=== PATIENT | female | born 1990 | race Caucasian/White ===

== ENCOUNTER 2022-09-30 12:42 | Outpatient (CLI) | payer SELFPAY ==
--- NOTE | 2022-09-30 13:00 | CRLHL7_ITS ---
For Patients: As a result of the Century Cures Act, medical imaging exams and procedure reports are released immediately into your electronic medical record. You may view this report before your referring provider. If you have questions, please contact your health care provider. INDICATION: First trimester scan, establish dates. TECHNIQUE: Real-time cooper-scale imaging of the pelvis was performed. FINDINGS: Sonographic imaging demonstrates a single living intrauterine gestation. The embryo demonstrates a regular cardiac rate measuring 168 beats per minute. The embryo`s crown-rump length measurement of 2.5 cm corresponds to a gestational age of 9 weeks 1 day with a sonographic due date of 05/04/2023 . There is a normal-appearing yolk sac. Small subchorionic hemorrhage measuring 1. 1 x 0.7 x 1. 9 centimeters. IMPRESSION: Early intrauterine gestation with gestational age of 9 weeks 1 day with KEEGAN of 05/04/2023. Small subchorionic hemorrhage measuring 1.1 x 0.7 x 1.9 cm. Dictated by Kathryn Valderrama MD @ 10/03/2022 7:16:27 AM (Electronically Signed)
== END 2022-09-30 12:43 | disposition home or self-care (01) ==
PROVIDERS: Visit Provider Physician Assistant
DX: Z34.91 Encounter for supervision of normal pregnancy, unspecified, first trimester (principal); O20.9 Hemorrhage in early pregnancy, unspecified; Z3A.09 9 weeks gestation of pregnancy
CPT/HCPCS: 76801

== ENCOUNTER 2022-09-30 13:48 | Outpatient (CLI) | payer SELFPAY ==
[2022-09-30 19:21] LABS: Chlamydia DNA Amplified* NOT DETECTED (No Detected); GC DNA Amplified* NOT DETECTED (No Detected)
== END 2022-09-30 13:49 | disposition home or self-care (01) ==
PROVIDERS: Visit Provider Registered Nurse
DX: Z34.91 Encounter for supervision of normal pregnancy, unspecified, first trimester (principal); Z3A.09 9 weeks gestation of pregnancy; O20.9 Hemorrhage in early pregnancy, unspecified
CPT/HCPCS: 86592; 86703; 86762; 86787; 86803; 86850; 86900; 86901; 87086; 87340; 87491; 87591

== ENCOUNTER 2023-02-12 11:20 | Outpatient (CLI) | payer OTHER, SELFPAY | END 2023-02-12 11:21 | disposition home or self-care (01) | LOC: NFLDREF 11:21 | PROVIDERS: Visit Provider Obstetrics & Gynecology | DX: O26.899 Other specified pregnancy related conditions, unspecified trimester (principal); Z67.91 Unspecified blood type, Rh negative | CPT/HCPCS: 86592; 86850; J2791 ==

== ENCOUNTER 2023-04-06 09:01 | Outpatient (CLI) | payer OTHER, SELFPAY ==
--- NOTE | 2023-04-06 09:15 | US_ITS ---
Patient: LESA FARAH Facility:?[facility] Patient ID:?[id number] Site Patient ID:?[id number]. Site :?[id number] Study:?US-OB Pelvis growth check-04/06/2023 10:42:59 AM Ordering Physician:ROBERTO Final Report: INDICATION: Third trimester scan, evaluate growth. COMPARISON: 09/30/2022 TECHNIQUE: Real time cooper scale imaging of the fetus was performed. FINDINGS: Sonographic imaging demonstrates a single living intrauterine gestation. Fetus demonstrates a regular cardiac rate of 145 beats per minute. Fetus has a vertex position. The placenta lies anterior. Amniotic fluid volume appears normal and there is a single deepest vertical pocket: 7.2 cm. The estimated weight is 3429gm which lies at the 92nd %. BPD 95th percentile. HC 93rd percentile. AC greater than 97th percentile. FL 17th percentile. The HC/AC ratio measures 0.98 range (0.89-1.06). IMPRESSION: Sonographic gestational age 38 weeks 1 day and sonographic due date of 04/19/2023. Sonographic age 12 days ahead of the clinical age. Estimated weight 92nd percentile. Abdominal circumference greater than 97th percentile. Dictated by Cash Butler MD @ 04/06/2023 11:05:53 AM Signed by:?Cash Butler MD @04/06/2023 11:05:53 AM (Electronic Signature)
== END 2023-04-06 09:02 | disposition home or self-care (01) ==
LOC: US 09:01
PROVIDERS: Visit Provider Obstetrics & Gynecology
DX: Z34.93 Encounter for supervision of normal pregnancy, unspecified, third trimester (principal); Z3A.38 38 weeks gestation of pregnancy
CPT/HCPCS: 76815; 76816; 76819

== ENCOUNTER 2023-04-06 11:00 | Outpatient (CLI) | payer OTHER, SELFPAY | END 2023-04-06 11:01 | disposition home or self-care (01) | LOC: NFLDREF 04-22 14:54 | PROVIDERS: Visit Provider Obstetrics & Gynecology | DX: Z34.93 Encounter for supervision of normal pregnancy, unspecified, third trimester (principal); Z36.85 Encounter for antenatal screening for Streptococcus B; Z3A.38 38 weeks gestation of pregnancy | CPT/HCPCS: 87081; 87653 ==

== ENCOUNTER 2023-05-03 05:19 | Inpatient (IN) | payer OTHER, SELFPAY ==
[2023-05-03] VITALS (36 sets, daily range): BP systolic 91–117; BP diastolic 54–76; PULSE 62–89; RESP 16–18; TEMP 36.3–36.7; O2SAT 95–100; BMI 40.5
[2023-05-03 06:01] LABS: Basophils Absolute Auto 0.04 K/uL (0.00-0.30); Basophils Percent Auto 0.4 % (0.0-3.0); Eosinophils Absolute Auto 0.14 K/uL (0.00-0.50); Eosinophils Percent Auto 1.4 % (0.0-7.0); Hemoglobin* 12.1 gm/dL (12.0-16.0); Immature Granulocytes Abs Auto 0.03 K/uL (0.00-0.30); Immature Granulocytes Pct Auto 0.3 %; Lymphocytes Absolute Auto 2.61 K/uL (0.90-2.90); Lymphocytes Percent Auto 26.1 % (20-44); Mean Corpuscular HGB Conc 34 gm/dL (32-36); Mean Corpuscular Hemoglobin 29 pg (26-34); Mean Corpuscular Volume 87 fL (80-100); Monocytes Percent Auto 5.9 % (0.0-11.0); Neutrophils Absolute Auto 6.59 K/uL (1.7-7.0); Neutrophils Percent Auto 65.9 % (42.0-72.0); Platelet Count* 164 K/uL (140-440); RDW Coefficient of Variation % 13.8 % (11.5-15.5); Red Blood Count 4.13 m/uL (4.00-5.20)
[2023-05-03 06:12] LABS: Slide Review Reflex No
[2023-05-03] MEDS: LACTATED RINGERS 1000 ML 1,000 ML 500 ML IV (06:19)
--- NOTE | 2023-05-03 07:22 | P.LDBA_ITS ---
Subjective History of Present Illness Time Seen by Provider: 07:05 Narrative: Patient is being admitted to Labor and Delivery for repeat section. She is a 32 year old at 40 2/7 weeks gestation. Her full history and physical was dictated by Dr. Schulte on 04/14/23. Please see this for details. Specific Issues/Plans G 2 P 1001 H&P done by Dr. Schulte on 04/14/23 1. BMI 35.1 * Hemoglobin A1c 5.2 * Recommend daily baby ASA d/t BMI and family h/o pre E 2. History of delivery due to arrest of descent. * Desires TOLAC. * Growth ultrasound at 36 weeks: (04/06/2023) EFW 3429 g or 7 lb 9 oz (92%), BPD 95%, HC 93%, AC >97%, FL 17%, SDP 7.2 cm. * If no spontaneous labor by due date, then probably will choose repeat section over IOL. 3. ZE 1.1 x 0.7 x 1.9 cm. 4. 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 Facial abnormalities, ocular problems, hearing loss, and joint and skeletal problems) in father of the baby's family, his father and sister. FOB sister with stickler also had heart defects. * Offer genetic counseling: Seen 12/09/22. Recommended echo and possibly screening. * MFM Consult and Level 2 US: 12/09/22, normal. Recommended echo, not yet scheduled. 5. Rh negative - s/p Rhogam COVID: Not vaccinated. Recommended. Flu: Declined Rhogam: 02/12 RSV: Declined OB - Problem Based A/P Delivery/Labor/Induction Plan Plan: Section (Informed consent obtained.) OB Result Labs Blood Type: 0 (-) negative Rubella: immune RPR/VDLR: nonreactive GBS Status: negative HBsAG: negative OB Exam Physical Exam Vital signs: Temp Pulse Resp BP 97.9 F 89 17 117/75 05/03/23 05:57 05/03/23 05:57 05/03/23 05:57 05/03/23 05:57 Detailed Labor and Delivery Exam Patient Gravid: Yes Fetus (Single) Amniotic Membrane Status: intact Heart Rate Baseline: 140 Monitor Accelerations: Present Monitor Decelerations: None Jail Variability: Moderate (6-25)
--- NOTE | 2023-05-03 07:24 | PM.OBPRCCS ---
OB Delivery Proc Additional Procedures Tubal Ligation at the time of : No Procedure Date of procedure: 05/03/23 Pre-op diagnosis: 40 2/7 weeks gestation, h/o prior Post-op diagnosis: same Procedure Done: Global Will [facility] bill your pro fee for this procedure?: Yes Blood Loss Measurement Type: QBL (444 mL) Bakri Used: No Surgeon: Mariaelena Schulte MD Anesthesia Type: Spinal (and TAP block) Findings: Moderate amount of scar tissue involving fasica and rectus muslces, bladder and lower uterine segment. Live-born male infant, cephalic presentation, Apgars 9 and 9 at 1 and 5 minutes respectively, weight 3080 g or 8 lb 2 oz. normal-appearing fallopian tubes and ovaries bilaterally. Procedure Name: Repeat low transverse section. Procedure Description: After obtaining informed consent, the patient was taken to the operating room where spinal anesthesia was obtained and found to be adequate. She was prepared and draped in the normal sterile fashion in the dorsal supine position with a leftward tilt. A Pfannenstiel skin incision was made with a scalpel along the line of the patient's previous Pfannenstiel scar. This incision was carried down to the underlying layer of fascia with the Bovie. The fascia was incised in the midline and the incision extended laterally. The superior and inferior aspects of the fascial incision were grasped with Mirlande clamps, elevated and the underlying rectus muscles dissected off sharply and with electrocautery. This dissection took an increased amount of time given the dense adhesions. The rectus muscles were then in the midline. The adhesions between the bladder and lower uterine segment were taken down sharply with Metzenbaum scissors. The Brayden O retractor was then placed into the incision. The lower uterine segment was then incised in a transverse fashion with the scalpel. Upon entry into the uterus, clear amniotic fluid was noted. The uterine incision was extended laterally with blunt finger fractionation. The infant's head was delivered atraumatically, followed by the remainder of the 's body. The nose and mouth were suctioned with the bulb suction. The cord was doubly clamped and cut, and the was handed off the field for evaluation. The placenta was delivered spontaneously with umbilical cord traction and fundal massage. The uterus was cleared of all clots and debris. The uterine incision was reapproximated in a running locking fashion with a 0 chromic suture. A 2nd layer of the same suture was used to imbricate in horizontal fashion. One additional figure of X suture of 3-0 chromic was needed for hemostasis near the left lateral aspect of the hysterotomy closure. The gutters were irrigated and suctioned. All instruments and retractors were removed. The anterior peritoneum was reapproximated in a running fashion with a 3-0 Vicryl suture. The subfascial tissues were carefully inspected and hemostasis assured. The fascia was reapproximated in a running fashion with a looped 0 Maxon suture. The subcutaneous tissues were copiously irrigated. Hemostasis was assured. The subcutaneous fat layer was reapproximated with interrupted sutures of 3-0 plain gut. The skin was closed in a subcuticular fashion with 4-0 Monocryl. Surgical glue and dressing were applied. The patient tolerated the procedure well. Sponge, lap, needle, and instrument counts were reported as correct x2. The patient was taken to the recovery room, awake, and in stable condition. She did receive 2 grams of IV Ancef preoperatively. Complications: None. Pathology: none sent Surgery Debrief Performed: Yes Surgery Debrief Comment: Debrief confirmed procedure performed, estimated blood loss, weight and Apgars, placenta not to be sent to pathology. Condition: stable Disposition: floor
[2023-05-03] MEDS: CEFAZOLIN 2 GM INJ IVP (07:35)
[2023-05-03] MEDS: LACTATED RINGERS 1000 ML 1,000 ML 100 ML IV (07:52)
--- NOTE | 2023-05-03 07:54 | W.ANESCHARGE ---
Anesthesia Charges Start Date/Time Anesthesia Start Date: 05/03/23 Anesthesia Start Time: 07:20 Stop Date/Time Anesthesia Stop Date: 05/03/23 Anesthesia Stop Time: 09:02
[2023-05-03] MEDS: KETOROLAC 15 MG/ML inj IVP (08:40)
--- NOTE | 2023-05-03 09:10 | W.PM.NB ---
Nerve Block Nerve Block Time Seen by Provider: 08:52 Date Seen: 05/03/23 Type of block requested by surgeon for post-operative analgesia: TAP Side: bilateral Time out performed: Yes Verification of patient name: Yes Verification of date of : Yes Site marking: site marked Name of person performing procedure: Jose M Continuous monitoring Was continuous monitoring of O2 sat, B/P, court recording monitor, recorded every 15 minutes?: Yes Procedure Checklist: sterile prep, needles and gloves Ultrasound guided. Images saved: Yes Medications given in 5ml increments after negative aspiration: Marcaine %: 0.25 mL: 30 Needle gauge: 20 and Exparel mL: 10 Patient tolerated procedure well: Yes Additional comments: Needle noted between internal oblique and transversus abdominus. Local spread visualized Block Charges Block Charge (with Pro Fee): TAP Bilateral Use of Ultrasound Machine for Block: Yes- US Guidance/pain block
--- NOTE | 2023-05-03 09:11 | W.ANESCHARGE ---
Anesthesia Charges Start Date/Time Anesthesia Start Date: 05/03/23 Anesthesia Start Time: 07:20 Stop Date/Time Anesthesia Stop Date: 05/03/23 Anesthesia Stop Time: 09:02
[2023-05-03] MEDS: KETOROLAC 30 MG/ML inj IVP ×2 (14:36→20:48)
[2023-05-03] MEDS: ACETAMINOPHEN 500 MG TABLET 1000 MG PO ×2 (17:36→23:39)
[2023-05-03] MEDS: DOCUSATE SODIUM 100 MG CAPSULE PO (23:40)
[2023-05-04] VITALS (12 sets, daily range): BP systolic 103–114; BP diastolic 69–77; PULSE 79–105; RESP 16; TEMP 36.5–36.8; O2SAT 97–98
[2023-05-04] MEDS: KETOROLAC 30 MG/ML inj IVP ×3 (03:18→15:52)
[2023-05-04 06:45] LABS: Hemoglobin* 11.2 gm/dL (12.0-16.0)
[2023-05-04] MEDS: ACETAMINOPHEN 500 MG TABLET 1000 MG PO ×3 (07:18→22:16)
--- NOTE | 2023-05-04 07:32 | P.OBPN_ITS ---
OB - PN:Subj Subjective Date Seen: 05/04/23 Patient comments OB post-: no complaints, pain well controlled, tolerating diet and flatus present [place] status: and doing well [place] feeding status: exclusively Narrative: The patient feels well.? The pain is well controlled with current medications.? She has no new complaints.? Urinary output is adequate and she is voiding w ithout difficulty.? Has a good appetite, is tolerating a general diet, is passing flatus, and has not had a bowel movement.? Has scant amount of rubra lochia.? She is ambulating well.?She is and feels that it is going good at this time. OB - PN: Obj Exam Physical Exam: Vital signs: Temp Pulse Resp BP Pulse Ox O2 Del Method 98.2 F 105 H 16 105/74 97 Room Air 05/04/23 03:22 05/04/23 03:22 05/04/23 06:49 05/04/23 03:22 05/03/23 16:18 05/03/23 23:45 Narrative: GENERAL APPEARANCE:? normal affect, alert, no distress? MOOD:? appropriate? CHEST:? clear to auscultation and percussion? HEART:? regular rate and rhythm? ABDOMEN:? soft, non-tender the uterine fundus is U/2 and is appropriate for the stage of recovery.?Dressing is clean, dry and intact. EXTREMITIES:? normal and no edema? Urinary Catheter Management: Urethral: Cath placed during this visit: yes, but has since been removed by the nurse Reason for continuing: surgical procedure Insertion date: 05/03/23 Insertion time: 07:40 Removal date: 05/03/23 Removal time: 17:20 OB - PN: Obj Data Labs Labs: Laboratory Results - last 24 hr 05/04/23 06:31 Hgb 11.2 L OB - PN: A/P Delivery Assessment and Plan (1) care following delivery: Status: Acute (2) Lactating mother: Status: Acute Plan day: 1 Plan: routine care Comments: Anticipate discharge tomorrow or the following dy per patient preference.
[2023-05-04] MEDS: DOCUSATE SODIUM 100 MG CAPSULE PO (15:56)
[2023-05-04 17:29] LABS: Rapid Plasma Reagin (RPR) Non Reactive (Non Reactive)
[2023-05-04] MEDS: IBUPROFEN 600 MG TABLET PO (20:12)
[2023-05-05] MEDS: IBUPROFEN 600 MG TABLET PO ×4 (02:11→20:51)
[2023-05-05 02:12] VITALS: BP 106/72; PULSE 97; RESP 16; TEMP 36.4; O2SAT 97
[2023-05-05] MEDS: ACETAMINOPHEN 500 MG TABLET 1000 MG PO ×3 (05:13→18:57)
[2023-05-05] MEDS: DOCUSATE SODIUM 100 MG CAPSULE PO (08:00)
[2023-05-05 09:15] VITALS: BP 114/78; PULSE 106; RESP 16; TEMP 36.7; O2SAT 98
--- NOTE | 2023-05-05 10:47 | P.OBPN_ITS ---
OB - PN:Subj Subjective Time Seen by Provider: 10:47 Date Seen: 05/05/23 Narrative: Betsy is a 32-year-old seen on postop day 2 from repeat delivery. was complicated by prior , subchorionic hemorrhage, Rh- negative status, obesity and Stickler syndrome. Betsy is feeling well, no acute concerns. She notes her pain is well controlled, rated 2/10. Lochia is minimal. Appetite at baseline, no nausea/vomiting. She voids spontaneously without issue, passing gas and bowel movement x1. Ambulates without dizziness or lightheadedness. She is experiencing some upper abdominal discomfort and itching, note she had a abdominal rash following her for . Betsy is baby Pato without difficulty. OB - PN: Obj Exam Physical Exam: Vital signs: Temp Pulse Resp BP Pulse Ox O2 Del Method 98.0 F 106 H 16 114/78 98 Room Air 05/05/23 09:15 05/05/23 09:15 05/05/23 09:15 05/05/23 09:15 05/05/23 09:15 05/05/23 09:15 Narrative: General: Alert and oriented, in no acute distress Psych: Appropriate mood and affect Abdomen: Soft, nondistended. Mildly tender to palpation in the low abdomen. Fundus at 1 below umbilicus. Skin: Erythematous patches across supraumbilical mid abdomen and 1 patch in the right lower quadrant, appearance consistent with likely contact dermatitis. Urinary Catheter Management: Urethral: Cath placed during this visit: yes, but has since been removed by the nurse Reason for continuing: surgical procedure Insertion date: 05/03/23 Insertion time: 07:40 Removal date: 05/03/23 Removal time: 17:20 OB - PN: Obj Data Labs Labs: Laboratory Results - last 24 hr 05/03/23 05/04/23 07:45 06:31 RPR Screen Non Reactive Screen Negative OB - PN: A/P Delivery Assessment and Plan (1) care following delivery: Status: Acute Assessment and Plan: Ms. Fitzgerald is seen on POD2 from repeat C/S. She is feeling well, unremarkable post-op course to present. She is meeting all appropriate postoperative milestones. Vital signs reviewed and are noted to be within normal limits. Post-op Hgb of 11.2. Continue to work on pain control, p.o. intake and amb ulation. She is a candidate for early dismissal this evening, but is planning to stay overnight. All questions answered. (2) Lactating mother: Status: Acute (3) Contact dermatitis: Status: Acute Assessment and Plan: Betsy has erythematous patches on her abdomen consistent with contact dermatitis. This may be secondary to surgical prep or drapes. Recommend cetirizine PRN and hydrocortisone cream for itching. Plan Plan: routine care
[2023-05-05 16:44] VITALS: BP 107/73; PULSE 89; RESP 16; TEMP 36.7; O2SAT 97
[2023-05-06 01:11] VITALS: BP 110/72; PULSE 86; RESP 16; TEMP 36.8; O2SAT 95
[2023-05-06] MEDS: ACETAMINOPHEN 500 MG TABLET 1000 MG PO ×2 (01:36→07:51)
[2023-05-06] MEDS: IBUPROFEN 600 MG TABLET PO ×2 (04:09→11:25)
--- NOTE | 2023-05-06 07:52 | P.DS_ITS ---
DS: Providers Provider Date Seen: 05/06/23 Date of admission: 05/03/23 05:19 Primary care physician: Not a Local Provider Admitting Clinician: Mariaelena Schulte MD Attending Physician on discharge: Vidya Irwin CNM Date of Discharge: 05/06/23 DS: Diagnosis Discharge Diagnosis (1) care following delivery: Status: Acute (2) Lactating mother: Status: Acute (3) Contact dermatitis: Status: Acute Exam Narrative: Exam Narrative: GENERAL APPEARANCE:? normal affect, alert, no distress MOOD:? appropriate CHEST:? clear to auscultation HEART:? regular rate and rhythm ABDOMEN:? soft, non-tender the uterine fundus is firm u/1 Umbilicus, Midline and is appropriate for the stage of recovery. PERINEUM:?intact EXTREMITIES:? normal and trace edema Incision: Healing well, no surrounding erythema, abnormal induration or discharge. There is no notable rash to her abdomen today. Const: Vital Signs, click to edit/add: Vital Signs - 24 hr 05/05/23 09:15 05/05/23 16:44 05/06/23 01:11 Temperature 98.0 F 98.0 F 98.3 F Pulse Rate [Right Pulse Oximeter] 106 H 89 86 Respiratory Rate 16 16 16 Blood Pressure [Le ft Arm] 114/78 107/73 110/72 Pulse Oximetry 98 97 95 Oxygen Delivery Me thod Room Air Room Air Room Air Documenting provider has reviewed patient's vital signs: yes OB - DS: Summary Hospital Course Hospital Course: Betsy is a 32 y.o. who was admitted to L & D for repeat section. ?She had an uncomplicated .?The patient feels well. ?The pain is well controlled with current medications. ?She has no new complaints. ?She is breast feeding and reports things are going well.? the patient has done well.? Vitals have been stable.? She has remained afebrile.? Has a good appetite, is tolerating a general diet. ?She is voiding without difficulty.? She is passing gas and has had a bowel movement.? She is ambulating and denies any dizziness.? Has Small amount of rubra lochia. ?She is planning NFP for prevention. Peripartum Data delivery method: Repeat Section Procedures: Procedures Operation Date: 05/03/23 07:15 Actual Procedure Side Surgeon p Repeat Section Not Applicable Mariaelena Schulte MD complications: none Infant Gender: Male Infant Discharge Plan: Home Status at Discharge Functional status at discharge: independent ambulation Overall status at discharge: patient is progressing back to baseline Time Spent with Patient Time attestation: Total time spent providing and/or coordinating discharge services: Time spent: Less than 30 minutes Discharge Plan Discharge Disposition: Home, Self-Care Date of Admission: 05/03/23 05:19 Attending Provider on Discharge: Vidya Irwin Primary Care Provider: Provider,Not a Local Condition: Stable Anticipated Discharge Date/Time: 05/06/23 12:00 Discharge Medications: New acetaminophen 500 mg Tablet 1,000 mg PO Q6H PRN (Reason: Pain) Qty: 0 0RF docusate sodium 100 mg Capsule 100 mg PO DAILY Qty: 60 2RF ibuprofen 600 mg Tablet 600 mg PO Q6H PRN (Reason: Pain) Qty: 90 0RF oxycodone 5 mg Tablet 5 - 10 mg PO Q4H PRN (Reason: Pain) Qty: 10 0RF Continued DHA 200 mg capsule PO albuterol sulfate [Ventolin HFA] 90 mcg/actuation HFA aerosol inhaler 2 inh inhalation Q6H PRN (Reason: shortness of breath or wheezing) Qty: 8.5 0RF Discharge Orders: Discharge Order (Routine); Ordered 05/06/23 Ordered By: Vidya Irwin Patient Education: OB Over the Counter Medication Information, OB /Breast Feeding Activity Level: Activity as Tolerated Discharge Diet: Regular Follow Up Appointments: Provider,Not a Local [Primary Care Provider] - [facility] [Provider Group] Forms: [employer] Info Instructions
[2023-05-06 08:25] VITALS: BP 105/70; PULSE 88; RESP 20; TEMP 36.4; O2SAT 96
[2023-05-06] MEDS: DOCUSATE SODIUM 100 MG CAPSULE PO (09:23)
== END 2023-05-06 12:03 | disposition home or self-care (01) | DRG 788 ==
PROVIDERS: Admitting Provider Obstetrics & Gynecology; Visit Provider Obstetrics & Gynecology
PROC: 10D00Z1 Extraction of Products of Conception, Low, Open Approach (ICD-10-PCS; CPT 59514; principal; 2023-05-03 07:15)
DX: O34.211 Maternal care for low transverse scar from previous cesarean delivery (principal); O26.893 Other specified pregnancy related conditions, third trimester; Z67.41 Type O blood, Rh negative; G89.18 Other acute postprocedural pain; Z3A.40 40 weeks gestation of pregnancy; Z37.0 Single live birth; O99.214 Obesity complicating childbirth; Z82.79 Family history of other congenital malformations, deformations and chromosomal abnormalities; L25.9 Unspecified contact dermatitis, unspecified cause; O48.0 Post-term pregnancy
CPT/HCPCS: 01961; 36415; 64488; 76942; 85018; 85025; 85461; 86592; 86850; 86900; 86901; A9270; C9290; J0665; J0690; J1885; J2250; J2274; J2371; J2405; J2590; J2791; J3010; J7120

== ENCOUNTER 2023-05-20 14:21 | Outpatient (CLI) | payer OTHER, SELFPAY | END 2023-05-20 14:22 | disposition home or self-care (01) | LOC: FRMREF 14:22 | PROVIDERS: Visit Provider Registered Nurse | DX: R30.0 Dysuria (principal) | CPT/HCPCS: 87086 ==

== ENCOUNTER 2023-05-28 10:02 | Outpatient (CLI) | payer OTHER, SELFPAY ==
--- NOTE | 2023-05-28 17:00 | P.LACCB_ITS ---
Consult Note - Mom Date of Visit Date of visit: 05/28/23 interior design consultant: Janae Mckenzie Visit Code: Visit Patient's Information Phone number: [phone] : 2 Para: 2 Allergies clarithromycin [From Biaxin] Allergy (Unknown, Verified 05/20/23 12:47) Unknown clindamycin Allergy (Unknown, Verified 05/20/23 12:47) Unknown Sulfa (Sulfonamide Antibiotics) Allergy (Unknown, Verified 05/20/23 12:47) Unknown Mother's Medical History: Medical History (Updated 05/14/23 @ 00:01 by Background Daemon) Type of Contraception: NFP Work Plans: is not returning to work Delivery Information Delivery type: Repeat Section Weeks Gestation: 40.2 Gestational Age: AGA Weight: 3.68 kg Discharge Weight: 3.388 kg Baby's Information Baby's Age at Visit: 25 days Baby's Provider or Clinic: [facility] at [facility] Jaundice: No Reason for Consult Reason for Consult: not staying latched and mom wonders if it's gas, clicking with latching Past Experience Past Experience: Yes (nursed her older child over one year) Current Frequency of Day Feedings: about every three hours with some cluster feeding on occasion Frequency of Night Feedings: every 4 - 5 hours Both Breasts: Yes Suck: not aggressive Latch: fairly wide Length of Time: 10 - 30 minutes total Pumping Pumping: Yes (on occasion) Supplementing EMB Supplement: No Formula Supplement: No Baby Elimination Number of Wet Diapers a Day: at least every other feeding Number of BM a Day: 3 - 4 times/24 hours Breast/Nipple Condition Breast Information: WNL Maternal Nipple Condition - Left: Common Nipple Maternal Nipple Condition - Right: Common Nipple Onsite Pre-Feed weight: 3.858 kg Post-Feed weight: 3.984 kg Milk Transferred (mL): 126 Assessments/Interventions Assessments/Interventions: Met with mom and this now 3.5 week old ex- term AGA baby for consult. Mom reports in the last 1 - 2 weeks baby has had more trouble staying latched during nursing sessions and she's worried he may be gassy and uncomfortable. She also states he's started to make a clicking sound when nursing for about half of his feedings. Baby is nursing about every 3 hours during the day and every 4 - 5 hours overnight, nursing sessions last 10 - 30 minutes total. Mom is only pumping on occasion and gives a bottle of EBM every few days. Breasts WNL- symmetrical with rounded lower quadrants, intramammary distance < 1.5 inches. Nipples are everted and don't flatten or retract on compression, no damage noted. Baby has gained 20 grams/day since his last visit on 05/23. Mom denies any caput/cephalohematoma at delivery. States he prefers to turn his head to the right, but has equal ROM when moving his extremities. Baby is seeing a chiropractor. His palate is high. His upper frenulum is tight and it's difficult to flange the upper lip. He has a strong suck on a finger and the tongue extends past the gumline but then pulls behind the gumline. The tongue also has poor lateralization. The lower frenulum appears to be WNL. She reports her older son had a lip revision. Mom latched baby to the right side in the cross cradle hold and the latch appeared fairly wide and mom was comfortable, but baby's cheeks were dimpling. After a few minutes he started to have a sucking sound with each dimple of the cheeks (not really a clicking, more of a sucking). Mom reported that this is what she hears as well. She unlatched him and when bringing him to her this time she made a firmer sandwich with her breast and exaggerated pointing nipple to nose. Baby was able to latch a little more deeply and both the cheek dimpling and sucking sound resolved. Baby wasn't aggressive, but nursed 10 - 15 minutes before mom unlatched him. Mom offered the left side and using the aforementioned ideas, latched baby without issue. He wasn't aggressive on this side either; after about 10 minutes he got sleepy so mom unlatched him. When weighed he transferred 126 ml. No s/s of gas discomfort at this feeding. Mom was shown a few exercises to hopefully help baby extend his tongue more consistently, as well as learn how to use his tongue ( palate sweeps, tug of war, and side to side). Plan: 1. Continue nursing ALD, offering both sides like you have been. Suggested mom support the breast more than she has been and exaggerate nipple to nose. 2. No medical need to supplement, but suggested she have dad offer a bottle daily or every few days so baby remembers how to bottle feed. 3. No medical need to pump but suggested she pump for every bottle feeding. 4. Try the tongue exercises for the next few weeks. Continue with the chiropractor. 5. F/U with PCP for a one month well baby visit and I will call her in a few weeks to see how things are going. If no improvement or poor weight gain could suggest dental referral. 6. Will fax note to PCP. Meds Home Medications and Allergies Home Medications Medication Instructions Recorded Confirmed Type docosahexaenoic acid 200 mg mg PO 09/30/22 05/20/23 History capsule ( DHA) Allergies Allergy/AdvReac Type Severity Reaction Status Date / Time clarithromycin [From Biaxin] Allergy Unknown Unknown Verified 05/20/23 12:47 clindamycin Allergy Unknown Unknown Verified 05/20/23 12:47 Sulfa (Sulfonamide Allergy Unknown Unknown Verified 05/20/23 12:47 Antibiotics)
== END 2023-05-28 10:03 | disposition home or self-care (01) ==
LOC: OB LAC 10:03
PROVIDERS: Visit Provider Obstetrics & Gynecology
DX: Z39.1 Encounter for care and examination of lactating mother (principal)
CPT/HCPCS: G0463

== ENCOUNTER 2023-06-18 15:13 | Outpatient (CLI) | payer OTHER, SELFPAY | END 2023-06-18 15:14 | disposition home or self-care (01) | LOC: NFLDREF 15:14 | PROVIDERS: Visit Provider Registered Nurse | DX: Z39.2 Encounter for routine postpartum follow-up (principal) | CPT/HCPCS: 84443 ==